=== PATIENT | female | born 1990 | race Caucasian/White ===

== ENCOUNTER 2021-04-27 12:08 | Inpatient (IN) ==
[2021-04-27] MEDS ORDERED: Nicotine PATCH 14 MG/24 HR PATCH TRANSDERM ONE (13:01)
[2021-04-27] MEDS ORDERED: Nicotine PATCH 21 MG/24 HR PATCH ONE (13:13)
[2021-04-27 13:20] LABS: ABS Eosinophils 0.2 10^3/ul (0-0.6); ABS Lymphocytes 1.7 10^3/ul (1.0-4.8); ABS Monocytes 0.7 10^3/ul (0-0.8); Eosinophil % 1.4 %; Hematocrit 39 % (35-47); Hemoglobin 13.6 g/dL (12.0-16.0); Lymphocyte % 14.8 %; Mean Corpuscular HGB Conc 35 g/dL (31-36); Mean Corpuscular Hemoglobin 33 pg (27-31); Mean Corpuscular Volume 96 fL (80-97); Mean Platelet Volume 7.2 fL (7.4-10.4); Nucleated Red Blood Cells % 0.1; Platelet Count 293 10^3/uL (150-450); Red Blood Count 4.11 10^6 /uL (3.70-4.87); Red Cell Distribution Width 13 % (10-15); White Blood Count 11.7 10^3/uL (3.5-10.8)
[2021-04-27] MEDS ORDERED: Nicotine PATCH 21 MG/24 HR PATCH TRANSDERM ONE (13:26)
[2021-04-27 13:27] LABS: Urine Appearance Clear; Urine Bilirubin Negative (Negative); Urine Blood Negative (Negative); Urine Color Straw; Urine Glucose Negative (Negative); Urine Ketones Negative (Negative); Urine Nitrite Negative (Negative); Urine Protein Negative (Negative); Urine Specific Gravity 1.003 (1.002-1.030); Urine Urobilinogen Negative (Negative)
[2021-04-27 13:37] LABS: ALT 29 U/L (7-52); AST 41 U/L (13-39); Albumin 4.1 g/dL (3.2-5.2); Albumin/Globulin Ratio 1.3 (1-3); Alkaline Phosphatase 78 U/L (35-149); Anion Gap 7 mmol/L (2-11); Blood Urea Nitrogen 10 mg/dL (6-24); CO2 Carbon Dioxide 26 mmol/L (22-32); Calcium 9.2 mg/dL (8.6-10.3); Chloride 106 mmol/L (101-111); Globulin 3.1 g/dL (2-4); Glucose 101 mg/dL (70-100); Potassium 3.9 mmol/L (3.5-5.0); Sodium 139 mmol/L (135-145); Total Protein 7.2 g/dL (6.4-8.9)
[2021-04-27 13:47] LABS: HCG Pregnancy 0.62 mIU/mL
[2021-04-27 14:07] LABS: Urine Benzodiazepine Screen None Detected (None Detect); Urine Cannabinoids Screen None Detected (None Detect); Urine Opiates Screen None Detected (None Detect)
[2021-04-27 15:22] LABS: TSH Ultra Thyroid Stim Horm 1.94 mcIU/mL (0.34-5.60)
[2021-04-27 15:24] LABS: Acetaminophen < 15 mcg/mL; Alcohol, S < 13 mg/dL (<13); Salicylate < 2.50 mg/dL (<30)
[2021-04-27 17:59] LABS: Rapid COVID-19 Molecular Undetected (Undetected)
[2021-04-27] MEDS ORDERED: Al Hydrox/Mg Hydrox/Simet LIQ 30 ML UDC PO PRN (20:01)
[2021-04-28] MEDS: Nicotine PATCH 21 MG/24 HR PATCH TRANSDERM SCH (07:13)
[2021-04-28 07:23] LABS: HDL Cholesterol 61.3 mg/dL
[2021-04-28] MEDS: Vitamin THERAPEUTIC TAB PO SCH (10:03)
[2021-04-28] MEDS: ETHINYL ESTRADIOL PO SCH (10:04)
[2021-04-28] MEDS: DROSPIRENONE TABLE T PO SCH (10:04)
[2021-04-28] MEDS: Nicotine GUM 2MG FRUIT FLAVOR PO PRN (19:44)
[2021-04-29] MEDS: Nicotine PATCH 21 MG/24 HR PATCH TRANSDERM SCH (07:35)
[2021-04-29] MEDS: Nicotine GUM 2MG FRUIT FLAVOR PO PRN ×5 (08:35→17:31)
[2021-04-29] MEDS: Vitamin THERAPEUTIC TAB PO SCH (08:36)
[2021-04-29] MEDS ORDERED: Ethinyl Estradiol/Drospirenone TABLE(NF)T PO SCH (09:00)
[2021-04-29] MEDS: ETHINYL ESTRADIOL PO SCH (10:46)
[2021-04-29] MEDS: DROSPIRENONE TABLE T PO SCH (10:46)
[2021-04-29] MEDS ORDERED: diPHENhydraMINE 25 mg TAB ONE (22:59)
[2021-04-29] MEDS ORDERED: diPHENhydraMINE 25 mg TAB PO ONE (23:03)
[2021-04-30] MEDS ORDERED: diPHENhydraMINE 25 mg TAB PO ONE (03:00)
[2021-04-30] MEDS: Nicotine GUM 2MG FRUIT FLAVOR PO PRN ×3 (08:21→17:26)
[2021-04-30] MEDS: ETHINYL ESTRADIOL PO SCH (08:22)
[2021-04-30] MEDS: DROSPIRENONE TABLE T PO SCH (08:22)
[2021-04-30] MEDS: Nicotine PATCH 21 MG/24 HR PATCH TRANSDERM SCH (08:22)
[2021-04-30] MEDS: Vitamin THERAPEUTIC TAB PO SCH (08:23)
[2021-04-30] MEDS ORDERED: Flu vaccine *QUAD* 2021-22* 0.5 ML SYRINGE IM ONE (09:00)
[2021-05-01] MEDS: Venlafaxine XR 75 mg PO SCH (08:14)
[2021-05-01] MEDS: ETHINYL ESTRADIOL PO SCH (08:14)
[2021-05-01] MEDS: Vitamin THERAPEUTIC TAB PO SCH (08:14)
[2021-05-01] MEDS: Nicotine PATCH 21 MG/24 HR PATCH TRANSDERM SCH (08:14)
[2021-05-01] MEDS: DROSPIRENONE TABLE T PO SCH (08:14)
[2021-05-01] MEDS: Nicotine GUM 2MG FRUIT FLAVOR PO PRN ×3 (08:17→15:59)
[2021-05-01] MEDS ORDERED: Naltrexone INJ 380 MG IM ONE (13:30)
[2021-05-02] MEDS: Nicotine GUM 2MG FRUIT FLAVOR PO PRN ×3 (08:08→18:20)
[2021-05-02] MEDS: Nicotine PATCH 21 MG/24 HR PATCH TRANSDERM SCH (08:08)
[2021-05-02] MEDS: Vitamin THERAPEUTIC TAB PO SCH (08:08)
[2021-05-02] MEDS: DROSPIRENONE TABLE T PO SCH (08:08)
[2021-05-02] MEDS: Venlafaxine XR 75 mg PO SCH (08:08)
[2021-05-02] MEDS: ETHINYL ESTRADIOL PO SCH (08:08)
[2021-05-03] MEDS: Vitamin THERAPEUTIC TAB PO SCH (08:25)
[2021-05-03] MEDS: Venlafaxine XR 75 mg PO SCH (08:25)
[2021-05-03] MEDS: Nicotine GUM 2MG FRUIT FLAVOR PO PRN ×3 (08:27→17:12)
[2021-05-03] MEDS: Nicotine PATCH 21 MG/24 HR PATCH TRANSDERM SCH (08:27)
[2021-05-03] MEDS: DROSPIRENONE TABLE T PO SCH (08:27)
[2021-05-03] MEDS: ETHINYL ESTRADIOL PO SCH (08:27)
[2021-05-03 18:11] VITALS: BP 112/80
[2021-05-04] MEDS: ETHINYL ESTRADIOL PO SCH (08:26)
[2021-05-04] MEDS: Venlafaxine XR 75 mg PO SCH (08:26)
[2021-05-04] MEDS: DROSPIRENONE TABLE T PO SCH (08:26)
[2021-05-04] MEDS: Vitamin THERAPEUTIC TAB PO SCH (08:26)
[2021-05-04] MEDS: Nicotine GUM 2MG FRUIT FLAVOR PO PRN ×2 (08:27→12:35)
[2021-05-04] MEDS: Nicotine PATCH 21 MG/24 HR PATCH TRANSDERM SCH (08:32)
== END 2021-05-04 15:56 | disposition home or self-care (01) | DRG 751 ==
LOC: ED 12:08 → BSU 18:23
PROVIDERS: ADMIT Psychiatry & Neurology Psychiatry; ATTEND Student in an Organized Health Care Education/Training Program

== ENCOUNTER 2021-05-13 09:03 | Inpatient (IN) ==
[2021-05-13 10:26] LABS: ABS Basophils 0.1 10^3/ul (0-0.2); ABS Eosinophils 0.2 10^3/ul (0-0.6); ABS Lymphocytes 2.1 10^3/ul (1.0-4.8); ABS Monocytes 0.7 10^3/ul (0-0.8); ABS Neutrophils 7.9 10^3/ul (1.5-7.7); Eosinophil % 1.5 %; Hematocrit 38 % (35-47); Hemoglobin 13.3 g/dL (12.0-16.0); Lymphocyte % 19.2 %; Mean Corpuscular HGB Conc 35 g/dL (31-36); Mean Corpuscular Hemoglobin 34 pg (27-31); Mean Corpuscular Volume 95 fL (80-97); Nucleated Red Blood Cells % 0.1; Platelet Count 303 10^3/uL (150-450); Red Blood Count 3.99 10^6 /uL (3.70-4.87); Red Cell Distribution Width 13 % (10-15); White Blood Count 10.9 10^3/uL (3.5-10.8)
[2021-05-13 10:43] LABS: ALT 17 U/L (7-52); Albumin 3.9 g/dL (3.2-5.2); Albumin/Globulin Ratio 1.3 (1-3); Alkaline Phosphatase 55 U/L (35-149); Blood Urea Nitrogen 14 mg/dL (6-24); CO2 Carbon Dioxide 28 mmol/L (22-32); Calcium 8.6 mg/dL (8.6-10.3); Chloride 106 mmol/L (101-111); Globulin 2.9 g/dL (2-4); Glucose 90 mg/dL (70-100); Sodium 140 mmol/L (135-145); Total Protein 6.8 g/dL (6.4-8.9)
[2021-05-13 10:59] LABS: Acetaminophen < 15 mcg/mL; Alcohol, S < 13 mg/dL (<13); Salicylate < 2.50 mg/dL (<30)
[2021-05-13 11:48] LABS: Anion Gap 6 mmol/L (2-11)
[2021-05-13 13:01] LABS: Potassium Redraw 4.8 mmol/L (3.5-5.0)
[2021-05-13 18:15] LABS: Urine Appearance Clear; Urine Bilirubin Negative (Negative); Urine Blood Negative (Negative); Urine Color Yellow; Urine Glucose Negative (Negative); Urine Ketones Negative (Negative); Urine Nitrite Negative (Negative); Urine Protein Negative (Negative); Urine Specific Gravity 1.016 (1.002-1.030); Urine Urobilinogen Negative (Negative)
[2021-05-13 19:07] LABS: Urine Benzodiazepine Screen None Detected (None Detect); Urine Cannabinoids Screen None Detected (None Detect); Urine Opiates Screen None Detected (None Detect)
[2021-05-13] MEDS ORDERED: Al Hydrox/Mg Hydrox/Simet LIQ 30 ML UDC PO PRN (22:49)
[2021-05-13 23:48] LABS: Rapid COVID-19 Molecular Undetected (Undetected)
[2021-05-14] MEDS: Nicotine PATCH 21 MG/24 HR PATCH TRANSDERM SCH (08:53)
[2021-05-14] MEDS: Vitamin THERAPEUTIC TAB PO SCH (08:53)
[2021-05-14] MEDS: DROSPIRENONE PO SCH (08:54)
[2021-05-14] MEDS: ETHINYL ESTRADIOL PO SCH (08:54)
[2021-05-14] MEDS: Nicotine GUM 2MG FRUIT FLAVOR PO PRN (08:54)
[2021-05-15 08:00] LABS: HDL Cholesterol 53.1 mg/dL
[2021-05-15] MEDS: DROSPIRENONE PO SCH (08:27)
[2021-05-15] MEDS: ETHINYL ESTRADIOL PO SCH (08:27)
[2021-05-15] MEDS: Nicotine PATCH 21 MG/24 HR PATCH TRANSDERM SCH (08:27)
[2021-05-15] MEDS: Vitamin THERAPEUTIC TAB PO SCH (08:28)
[2021-05-16] MEDS: Vitamin THERAPEUTIC TAB PO SCH (08:31)
[2021-05-16] MEDS: DROSPIRENONE PO SCH (08:31)
[2021-05-16] MEDS: ETHINYL ESTRADIOL PO SCH (08:31)
[2021-05-16] MEDS: Nicotine PATCH 21 MG/24 HR PATCH TRANSDERM SCH (08:31)
[2021-05-17] MEDS: Vitamin THERAPEUTIC TAB PO SCH (08:19)
[2021-05-17] MEDS: ETHINYL ESTRADIOL PO SCH (08:20)
[2021-05-17] MEDS: DROSPIRENONE PO SCH (08:20)
[2021-05-17] MEDS: Nicotine GUM 2MG FRUIT FLAVOR PO PRN ×3 (08:21→17:33)
[2021-05-17] MEDS: Nicotine PATCH 21 MG/24 HR PATCH TRANSDERM SCH (08:21)
[2021-05-18] MEDS: ETHINYL ESTRADIOL PO SCH (09:51)
[2021-05-18] MEDS: DROSPIRENONE PO SCH (09:51)
[2021-05-18] MEDS: Vitamin THERAPEUTIC TAB PO SCH (09:52)
[2021-05-18] MEDS: Nicotine PATCH 21 MG/24 HR PATCH TRANSDERM SCH (09:53)
[2021-05-18] MEDS: Nicotine GUM 2MG FRUIT FLAVOR PO PRN ×3 (09:54→17:38)
[2021-05-19] MEDS: Vitamin THERAPEUTIC TAB PO SCH (08:29)
[2021-05-19] MEDS: Venlafaxine XR 75 mg PO SCH (08:29)
[2021-05-19] MEDS: Nicotine GUM 2MG FRUIT FLAVOR PO PRN ×3 (08:29→17:21)
[2021-05-19] MEDS: DROSPIRENONE PO SCH (08:30)
[2021-05-19] MEDS: ETHINYL ESTRADIOL PO SCH (08:30)
[2021-05-19] MEDS: Nicotine PATCH 21 MG/24 HR PATCH TRANSDERM SCH (08:30)
[2021-05-20] MEDS: DROSPIRENONE PO SCH (08:30)
[2021-05-20] MEDS: ETHINYL ESTRADIOL PO SCH (08:30)
[2021-05-20] MEDS: Venlafaxine XR 75 mg PO SCH (08:31)
[2021-05-20] MEDS: Vitamin THERAPEUTIC TAB PO SCH (08:31)
[2021-05-20] MEDS: Nicotine PATCH 21 MG/24 HR PATCH TRANSDERM SCH (08:32)
[2021-05-20] MEDS: Nicotine GUM 2MG FRUIT FLAVOR PO PRN ×2 (08:33→12:19)
[2021-05-21] MEDS: Vitamin THERAPEUTIC TAB PO SCH (08:30)
[2021-05-21] MEDS: Nicotine PATCH 21 MG/24 HR PATCH TRANSDERM SCH (08:31)
[2021-05-21] MEDS: DROSPIRENONE PO SCH (08:31)
[2021-05-21] MEDS: ETHINYL ESTRADIOL PO SCH (08:31)
[2021-05-21] MEDS: Nicotine GUM 2MG FRUIT FLAVOR PO PRN ×3 (08:32→17:27)
[2021-05-22] MEDS: Vitamin THERAPEUTIC TAB PO SCH (08:45)
[2021-05-22] MEDS: Nicotine PATCH 21 MG/24 HR PATCH TRANSDERM SCH (08:46)
[2021-05-22] MEDS: Nicotine GUM 2MG FRUIT FLAVOR PO PRN ×3 (08:47→17:22)
[2021-05-22] MEDS ORDERED: Venlafaxine XR 75 mg PO SCH (09:00)
[2021-05-22] MEDS: DROSPIRENONE PO SCH (10:38)
[2021-05-22] MEDS: ETHINYL ESTRADIOL PO SCH (10:38)
[2021-05-23] MEDS: Nicotine PATCH 21 MG/24 HR PATCH TRANSDERM SCH (08:27)
[2021-05-23] MEDS: Vitamin THERAPEUTIC TAB PO SCH (08:27)
[2021-05-23] MEDS: ETHINYL ESTRADIOL PO SCH (08:28)
[2021-05-23] MEDS: DROSPIRENONE PO SCH (08:28)
[2021-05-23] MEDS: Nicotine GUM 2MG FRUIT FLAVOR PO PRN ×3 (08:29→15:32)
[2021-05-24] MEDS: DROSPIRENONE PO SCH (08:17)
[2021-05-24] MEDS: Vitamin THERAPEUTIC TAB PO SCH (08:17)
[2021-05-24] MEDS: ETHINYL ESTRADIOL PO SCH (08:17)
[2021-05-24] MEDS: Nicotine PATCH 21 MG/24 HR PATCH TRANSDERM SCH (08:18)
[2021-05-24] MEDS: Nicotine GUM 2MG FRUIT FLAVOR PO PRN ×3 (08:20→17:46)
[2021-05-25] MEDS: Nicotine GUM 2MG FRUIT FLAVOR PO PRN ×4 (08:29→20:10)
[2021-05-25] MEDS: ETHINYL ESTRADIOL PO SCH (08:29)
[2021-05-25] MEDS: DROSPIRENONE PO SCH (08:29)
[2021-05-25] MEDS: Nicotine PATCH 21 MG/24 HR PATCH TRANSDERM SCH (08:29)
[2021-05-25] MEDS: Vitamin THERAPEUTIC TAB PO SCH (08:29)
[2021-05-26] MEDS: Vitamin THERAPEUTIC TAB PO SCH (08:45)
[2021-05-26] MEDS: Nicotine PATCH 21 MG/24 HR PATCH TRANSDERM SCH (08:46)
[2021-05-26] MEDS: Nicotine GUM 2MG FRUIT FLAVOR PO PRN ×2 (08:46→13:41)
[2021-05-26] MEDS: DROSPIRENONE PO SCH (11:04)
[2021-05-26] MEDS: ETHINYL ESTRADIOL PO SCH (11:04)
[2021-05-27] MEDS: Nicotine PATCH 21 MG/24 HR PATCH TRANSDERM SCH (08:17)
[2021-05-27] MEDS: Nicotine GUM 2MG FRUIT FLAVOR PO PRN ×2 (08:18→12:15)
[2021-05-27] MEDS: Vitamin THERAPEUTIC TAB PO SCH (09:49)
[2021-05-27] MEDS: DROSPIRENONE PO SCH (09:49)
[2021-05-27] MEDS: ETHINYL ESTRADIOL PO SCH (09:49)
[2021-05-27 10:03] VITALS: BP 128/76
== END 2021-05-27 16:45 | disposition home or self-care (01) | DRG 751 ==
LOC: ED 09:03 → BSU 21:28
PROVIDERS: ADMIT Psychiatry & Neurology Psychiatry; ATTEND Psychiatry & Neurology Psychiatry